=== PATIENT | female | born 1950 | race Caucasian/White ===

== ENCOUNTER 2019-05-17 14:30 | Outpatient (RCR) | payer MEDICARE, SELFPAY ==
--- NOTE | 2019-04-19 16:06 | PTOPEVAL ---
INITIAL PHYSICAL THERAPY EVALUATION and PLAN OF CARE Thank you for referring Beena to [facility]. Please review, sign, date and return this plan of care MARY CARMEN. Beena will be seen in PT 1x/wk x 4 wks. I agree with and certify that the following plan of care is medically necessary. Referring Physician Date Admitting Provider: Attending Provider: Jay Luevano, Referring Provider: *PT Outpatient Evaluation Start: 04/19/19 14:50 Freq: Status: Active Protocol: Document 04/19/19 14:50 ALAINA (Rec: 04/19/19 16:05 ALAINA [id number]) Therapy Assessment Status Assessment Status Assessment Status Evaluation Outpatient Past Medical History Neurological History Hx Neurological Disorders No Significant History Cardiovascular History Hx Cardiac Disorders No Significant History Respiratory History Hx Respiratory Disorders No Significant History Gastrointestinal History Hx Gastrointestinal Disorders No Significant History Genitourinary History Hx Genitourinary Disorders No Significant History Musculoskeletal History Hx Back Pain Yes: recent bout not too long ago Hx Osteoporosis Yes: osteopenia Hematological History Hx Hematological Disorders No Significant History Endocrine History Hx Thyroidectomy Yes HEENT History Hx HEENT Disorders No Significant History Integumentary History Hx Skin Disorders No Significant History Reproductive History Hx Reproductive Disorders No Significant History Evaluation Information Problem Diagnosis pain R buttock, piriformis syndrome Onset return about 1 wk after conculsion of PT Subjective Information Returned to bowling without Query Text:As Reported By Patient/ incident, did rake leaves on Family weekend - then flare up of back pain. Saw Zoe HURST - 04/10/19 - had X ray - increased arthritis present, received muscle relaxer and anti - inflammatory - helped Has continued with exercises - figure of 4 stretch and hip drop out exercises result in increase discomfort. To stop hip drop out and not push piriformis stretching. 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 Still bowling - when gets to end of
--- NOTE | 2019-05-17 15:51 | PTOPEVAL ---
PHYSICAL THERAPY DISCHARGE SUMMARY Thank you for referring Beena to [facility]. She received 4 visits in PT - has met all goals set. She is independent and compliant with HEP. I agree with Beena's discharge from PT. Referring Physician Date Admitting Provider: Attending Provider: Jay Luevano, MD Referring Provider: *PT Outpatient Evaluation Start: 04/19/19 14:50 Freq: Status: Active Protocol: Document 05/17/19 14:40 ALAINA (Rec: 05/17/19 15:51 ALAINA [id number]) Therapy Assessment Status Assessment Status Assessment Status Discharge Evaluation Information Problem Subjective Information Beena states she is doing well. Query Text:As Reported By Patient/ Able to get into and out of Family car without discomfort. Performing work activities without difficulties. Occassionally will have some stiffness with bending, but other times no difficulty. Getting ready to increase weight of bowling ball. Pain Assessment Timing of Pain Assessment Timing of Pain Assessment Assessment Pain Scale Pain Scale Used Numeric (1 - 10) Self Report Pain Assessment Right Buttock(s) Reported Pain Level 0 Current Pain Intensity 0 Lowest Pain Intensity 0 Greatest Pain Intensity 4 Pain Score Pain Score 0: Self Report Cervical and Lumbar ROM Lumbar ROM Lumbar Flexion (0-90) 50 Query Text:Active in Degrees Lumbar Extension (0-40) 15 Query Text:Active in Degrees Lumbar Lateral Flexion Right (0-40) 10 Query Text:Active in Degrees Lumbar Lateral Flexion Left (0-40) 10 Query Text:Active in Degrees Muscle Length Testing Muscle Length Testing Right Prone Knee Flexor Muscle Length ( 130 degrees) Left Prone Knee Flexor Muscle Length ( 130 degrees) Special Test-Spine Sacral Special Test Sacral Special Tests Pelvis/sacrum level in standing, symmetrical SIJ mobility with trunk AROM PT Clinical Summary Clinical Summary Protocol: PTEVCODE Clinical Summary Beena has met all goals set. She is to continue with her HEP on a regular basis. If there is a return of discomfort - she is to return to basic core stabilization exercises - then back to usual HEP.
== END 2019-06-29 14:06 | disposition home or self-care (01) ==
LOC: ANHHIPT 14:30
PROVIDERS: Visit Provider Internal Medicine
DX: G57.00 Lesion of sciatic nerve, unspecified lower limb (principal); R52 Pain, unspecified
CPT/HCPCS: 97110; 97140; 97161